=== PATIENT | male | born 1950 | race Caucasian/White ===

== ENCOUNTER 2019-02-12 06:07 | Outpatient (CLI) | payer MEDICARE, MEDICAID ==
[~2019-02-12] VITALS: Ht 185 cm; Wt 125.0 kg
[2019-02-13] MEDS ORDERED: CELE-63 PO (09:29)
[2019-02-13] MEDS ORDERED: METF-478 PO (09:29)
[2019-02-13] MEDS ORDERED: ATOR10TA66 PO (09:29)
[2019-02-13] MEDS ORDERED: LISI10TA2 PO (09:29)
== END 2019-02-12 15:45 | disposition home or self-care (01) ==
LOC: PREOP 06:07
PROVIDERS: ATTEND Otolaryngology Otolaryngology/Facial Plastic Surgery
DX: Z01.818 Encounter for other preprocedural examination (principal)

== ENCOUNTER 2019-02-16 11:07 | Day surgery (SDC) | payer MEDICARE, MEDICAID ==
[~2019-02-16] VITALS: Ht 185 cm; Wt 125.0 kg
[2019-02-16] VITALS (11 sets, daily range): BP systolic 103–207; BP diastolic 70–118
[~2019-02-16 11:07] MED LIST: ATOR10TA66 PO; CELE-63 PO; LISI10TA2 PO; METF-478 PO
[2019-02-16] MEDS ORDERED: LIDOCAINE 1% INJ 20 ML 20 ML VIAL ONE (11:30)
--- NOTE | 2019-02-16 11:45 | Progress Note-Pre Operative ---
Pre-Operative Progress Note H&P Reviewed The H&P was reviewed, patient examined and no changes noted. Date Seen by Provider: Feb 16, 2019 Time Seen by Provider: 11:30 Date H&P Reviewed: Feb 16, 2019 Time H&P Reviewed: :30 Pre-Operative Diagnosis: Left Tongue mass TOMÁS SANTA MD Feb 16, 2019 11:45 POS
[2019-02-16 11:57] LABS: BASOPHILS # (AUTO) 0.1 10^3/uL (0.0-0.1); BASOPHILS % (AUTO) 1 % (0-10); EOSINOPHILS # (AUTO) 0.2 10^3/uL (0.0-0.3); EOSINOPHILS % (AUTO) 3 % (0-10); HEMATOCRIT 47 % (40-54); HEMOGLOBIN 14.9 G/DL (13.3-17.7); LYMPHOCYTES # (AUTO) 3.3 X 10^3 (1.0-4.0); LYMPHOCYTES % (AUTO) 39 % (12-44); MEAN CORPUSCULAR HEMOGLOBIN 28 PG (25-34); MEAN CORPUSCULAR HGB CONC 32 G/DL (32-36); MEAN CORPUSCULAR VOLUME 89 FL (80-99); MEAN PLATELET VOLUME 8.8 FL (7.4-10.4); MONOCYTES # (AUTO) 0.8 X 10^3 (0.0-1.0); MONOCYTES % (AUTO) 9 % (0-12); NEUTROPHILS # (AUTO) 4.2 X 10^3 (1.8-7.8); NEUTROPHILS % (AUTO) 48 % (42-75); PLATELET COUNT 248 10^3/uL (130-400); RED CELL DISTRIBUTION WIDTH 14.8 % (10.0-14.5); WHITE BLOOD COUNT 8.6 10^3/uL (4.3-11.0)
[2019-02-16] MEDS ORDERED: LACTATED RINGERS 1,000 ML IV PRN (11:59)
[2019-02-16] MEDS ORDERED: FAMOTIDINE 20MG/2ML IV (PEPCID) ONE (12:04)
[2019-02-16] MEDS ORDERED: ONDANSETRON 4 MG/2 ML (SDV) Z0FRAN ONE ×2 (12:04→13:44)
[2019-02-16 12:13] LABS: BUN/CREATININE RATIO 23; CALCIUM 10.2 MG/DL (8.5-10.1); CARBON DIOXIDE 22 MMOL/L (21-32); CHLORIDE 104 MMOL/L (98-107); CREATININE SERUM 1.06 MG/DL (0.60-1.30); GFR ESTIMATED > 60; GLUCOSE 109 MG/DL (70-105); POTASSIUM 4.8 MMOL/L (3.6-5.0); SODIUM 138 MMOL/L (135-145)
[2019-02-16] MEDS ORDERED: ONDANSETRON 4 MG/2 ML (SDV) Z0FRAN IVP ONE (12:15)
[2019-02-16] MEDS ORDERED: FAMOTIDINE 20MG/2ML IV (PEPCID) IVP ONE (12:15)
[2019-02-16] MEDS ORDERED: LIDOCAINE/EPI 1%-1:100,000 (XYLOCAINE) 20ML ONE (13:14)
[2019-02-16] MEDS ORDERED: SUCCINYLCHOLINE INJ 100 MG/5 ML SYR ONE (13:44)
[2019-02-16] MEDS ORDERED: SEVOFLURANE (ULTANE) 15 ML INHAL SOLN ONE ×3 (13:44→16:07)
[2019-02-16] MEDS ORDERED: LIDOCAINE PF 2% 5 ML (XYLOCAINE) VIAL ONE (13:44)
[2019-02-16] MEDS ORDERED: ROCURONIUM 10 MG/ML 5 ML SYRINGE IV ONE (13:44)
[2019-02-16] MEDS ORDERED: proPOfol 200 MG/20 ML (DIPRIVAN) VIAL IV ONE ×2 (13:44→15:35)
[2019-02-16] MEDS ORDERED: MIDAZOLAM 2 MG/2 ML (VERSED) VIAL ONE (13:45)
[2019-02-16] MEDS ORDERED: fentaNYL INJECTION 100 MCG/2 ML AMP ONE (13:45)
--- NOTE | 2019-02-16 15:18 | Progress Note-Post Operative ---
Post-Operative Progess Note Surgeon (s)/Milling Machine Operator Gear (s) Surgeon TOMÁS SANTA MD Milling Machine Operator Gear n/a Pre-Operative Diagnosis Left Tongue mass Post-Operative Diagnosis same Post-Op Procedure Note Date of Procedure: Feb 16, 2019 Name of Procedure Performed: Bopsy of Left BAse of tongue Pharyngeal Mass Description & Findings Description and Findings: n/a Anesthesia Type get Estimated Blood Loss minimal Packing none. Specimen(s) collected/removed left base of tongue mass/pharyngeal mass-to pathology for frozen and to be treated as a lymphoma TOMÁS SANTA MD Feb 16, 2019 15:18 POS
[2019-02-16] MEDS ORDERED: morphine INJ 10 MG/ML 1ML (SYR OR VIAL) IVP ONE (15:30)
[2019-02-16] MEDS ORDERED: ONDANSETRON 4 MG/2 ML (SDV) Z0FRAN IVP PRN (15:30)
[2019-02-16] MEDS ORDERED: HYDROcodone/APAP 5 MG/325 MG (LORTAB) TAB PO PRN (15:30)
[2019-02-16] MEDS ORDERED: fentaNYL INJECTION 100 MCG/2 ML AMP IVP ONE (15:30)
[2019-02-16] MEDS ORDERED: ACETAMINOPHEN 325 MG TABLET PO PRN (15:30)
[2019-02-16] MEDS ORDERED: PHENYLEPHRINE 100 MCG/ML 10 ML (ANESTHESIA) SYR ONE (16:08)
[2019-02-16] MEDS ORDERED: VISCOUS XYLOCAINE TOP (17:36)
[2019-02-16] MEDS ORDERED: HYDR15SO8 PO (17:36)
--- NOTE | 2019-02-16 19:53 | Anesthesia-General Post-Op ---
General Patient Condition Mental Status/LOC: Same as Preop Cardiovascular: Satisfactory Nausea/Vomiting: Absent Respiratory: Satisfactory Pain: Controlled Complications: Absent Post Op Complications Complications None Follow Up Care/Instructions Patient Instructions None needed. Anesthesia/Patient Condition Patient Condition Patient is doing well, no complaints, stable vital signs, no apparent adverse anesthesia problems. No complications reported per nursing. BUD LERNER CRNA Feb 16, 2019 19:53 POS
== END 2019-02-16 18:20 | disposition home or self-care (01) ==
LOC: SDC 11:07
PROVIDERS: ATTEND Otolaryngology Otolaryngology/Facial Plastic Surgery
DX: K14.8 Other diseases of tongue (principal); I10 Essential (primary) hypertension; E78.5 Hyperlipidemia, unspecified; Z11.9 Encounter for screening for infectious and parasitic diseases, unspecified; E66.9 Obesity, unspecified; Z68.37 Body mass index [BMI] 37.0-37.9, adult; Z90.89 Acquired absence of other organs; Z90.49 Acquired absence of other specified parts of digestive tract; Z79.84 Long term (current) use of oral hypoglycemic drugs; Z88.8 Allergy status to other drugs, medicaments and biological substances; Z79.899 Other long term (current) drug therapy
CPT/HCPCS: 36415; 80048; 85025; 87081; 93005